=== PATIENT | female | born 1960 | race Caucasian/White ===

== ENCOUNTER 2017-09-26 17:21 | Emergency (ER) | payer BC ==
--- NOTE | 2017-09-26 18:14 | CT ---
CT BRAIN WITHOUT CONTRAST: 09/26/17 HISTORY: Fall. Hematoma. COMPARISON: None. FINDINGS: No acute territory infarct or hemorrhage. No midline shift or mass effect. There is some soft tissue calcification along the zygoma bilaterally. The globes are normal. There is a right supraorbital soft tissue contusion and hematoma with subtle focus of gas suggesting underlyi ng laceration. Calvarium is intact. IMPRESSION: Right supraorbital soft tissue contusion and hematoma without acute posttraumatic intracranial sequel a. POS: [facility]
--- NOTE | 2017-09-26 18:20 | CT ---
CT FACE WITHOUT CONTRAST: 09/26/17 HISTORY: Fall. COMPARISON: None. FINDINGS: Mandible is intact. The nasal bones, medial orbital yuen, lateral orbital yuen, zygoma, and zygomat ic arch, squamous temporal bone are all intact. There are deep fascial calcifications of the maxilla bilaterally. Right supraorbital soft tissue contusion and hematoma with small focus of subcutaneous gas. The pterygoid plates are intact. The anterior nasal spine of the maxilla is intact. No orbital floor fracture. IMPRESSION: No acute fracture of the face. POS: [facility]
--- NOTE | 2017-09-26 18:21 | RAD ---
CHEST ONE VIEW 09/26/17 HISTORY: Fall. COMPARISON: None. FINDINGS: Lungs are clear. No pneumothorax or effusion. The cardiac silhouette and mediastinal contours are wit hin normal limits. IMPRESSION: No acute intrathoracic abnormality. POS: [facility]
--- NOTE | 2017-09-26 18:24 | RAD ---
RIGHT WRIST THREE VIEW: 09/26/17 HISTORY: Fall. COMPARISON: None. FINDINGS: There is mild negative ulnar variance of the distal radioulnar joint degenerative changes. No acute f racture or malalignment. Moderate degenerative disease of the thumb carpometacarpal joint. There is small osseous avulsion seen along the distal ulna which may be a capsular injury. On the lat eral radiograph also appears to be a nondisplaced fracture of the ulnar styloid. IMPRESSION: Likely a triangular fibrocartilage injury of the distal ulna with small avulsion of likely the volar distal radial ulnar ligament as well as the tip of the ulnar styloid. Distal radius is intact. POS: [facility]
--- NOTE | 2017-09-26 18:42 | CT ---
CT CERVICAL SPINE WITHOUT CONTRAST 09/26/17 HISTORY: Fall. Hematoma. COMPARISON: None. FINDINGS: The occipital condyles are intact. The odontoid process is intact. Advanced degenerative disease betw een the odontoid process and the clivus. Advanced degenerative disc space height loss at C4-C6 with u ncinate process hypertrophy as well as osteophyte complexes. No acute fracture or malalignment. Moderate facet arthropathy throughout the cervical spine. The lung apices are clear. Thyroid is unremarkable. IMPRESSION: Advanced degenerative changes. No acute fracture or malalignment. POS: [facility]
[2017-09-26] MEDS ORDERED: Ondansetron ODT 4 MG TAB ONE ×2 (18:48→18:50)
[2017-09-26] MEDS ORDERED: Morphine 4 MG/ML VIAL ONE (18:48)
[2017-09-26] MEDS ORDERED: Adacel (T-DAP) 0.5 ML VIAL ONE (18:48)
[2017-09-26 18:50] LABS: #Basophils 0.1 thou/uL (0.0-0.2); #Eosinphils 0.2 thou/uL (0.0-0.7); #Lymphocytes 2.1 thou/uL (1.20-3.40); #Monocytes 0.5 thou/uL (0.11-0.59); #Neutrophils 4.7 thou/uL (1.40-6.50); %Basophils 0.7 % (0.0-1.0); %Eosinophils 2.5 % (0.0-10.0); %Lymphocytes 27.7 % (21.0-51.0); %Monocytes 6.7 % (0.0-10.0); %Neutrophils 62.4 % (42.0-75.0); Mean Corpuscular HGB CONC 34.2 g/dL (32.0-36.0); Mean Corpuscular Hemoglobin 34.4 pg (27.0-31.0); Mean Platelet Volume 7.2 fL (7.4-10.4); Platelet Count 334 thou/uL (130-400); RBC Distribution Width 12.5 % (11.5-14.5); Red Blood Cell (RBC) Count 3.76 mill/uL (4.20-5.40); White Blood Cell (WBC) Count 7.6 thou/uL (4.8-10.8)
--- NOTE | 2017-09-26 19:24 | RAD ---
LEFT KNEE FOUR VIEW 09/26/17 HISTORY: Fall. COMPARISON: None. FINDINGS: No acute displaced fracture or malalignment. Soft tissue is unremarkable. No joint effusion. IMPRESSION: No abnormality. POS: [facility]
--- NOTE | 2017-09-26 19:25 | RAD ---
RIGHT TIBIA AND FIBULA TWO VIEWS: 09/26/17 HISTORY: Fall. COMPARISON: None. FINDINGS: No fracture. No malalignment. No knee joint effusion. IMPRESSION: No acute abnormality. POS: [facility]
[2017-09-26] MEDS ORDERED: Acetaminophen 500 MG TAB ONE (19:44)
--- NOTE | 2017-09-26 20:07 | RAD ---
LUMBAR SPINE THREE VIEW 09/26/17 HISTORY: Fall. COMPARISON: Lumbar spine radiograph 2016. FINDINGS: Continued anterolisthesis of L4 over L5 just under 1 cm. Posterior spinal fusion hardware is unchange d. No acute fracture or malalignment. Mild narrowing of the L3-4 disc space and L2-3 disc space. Large phleboliths in the pelvis. IMPRESSION: No acute abnormality. POS: [facility]
[2017-09-26 20:10] LABS: ALT (SGPT) 25 U/L (8-55); AST (SGOT) 22 U/L (5-34); Albumin 3.6 g/dL (3.5-5.0); Alkaline Phosphatase 82 U/L (40-150); Anion Gap 10 mmol/L (10-20); BUN (Urea Nitrogen) 19 mg/dL (9.8-20.1); Bilirubin, Total 0.4 mg/dL (0.2-1.2); Calc. Creatinine Clearance 0 mL/min (70-130); Calcium 8.4 mg/dL (7.8-10.44); Carbon Dioxide 24 mmol/L (22-29); Chloride 105 mmol/L (98-107); Estimated GFR-MDRD Greater than 90; Globulin 2.5 g/dL (2.4-3.5); Glucose 92 mg/dL (70-105); Potassium 3.6 mmol/L (3.5-5.1); Protein, Total 6.1 g/dL (6.0-8.3); Sodium 135 mmol/L (136-145)
--- NOTE | 2017-09-26 21:09 | RAD ---
LEFT WRIST THREE VIEW 09/26/17 HISTORY: Fall. COMPARISON: None. FINDINGS: No fracture. No malalignment. Mild capsular calcification of the thumb carpometacarpal joint. Soft tissues are unremarkable. IMPRESSION: No acute abnormality. POS: [facility]
--- NOTE | 2017-09-29 14:46 | EKG ---
Test Reason : Blood Pressure : / mmHG Vent. Rate : 087 BPM Atrial Rate : 087 BPM P-R Int : 162 ms QRS Dur : 098 ms QT Int : 388 ms P-R-T Axes : 017 -24 014 degrees QTc Int : 466 ms Normal sinus rhythm Normal ECG Confirmed by FERNANDEZ BRAN M.D. ([id number]), index editor MARIANA CHAVES ([id number]) on 09/29/2017 2:46:21 PM Referred By: Confirmed By:FERNANDEZ BRAN M.D.
== END 2017-09-26 22:00 | disposition home or self-care (01) ==
LOC: ERS 17:21
DX: S52.614A Nondisplaced fracture of right ulna styloid process, initial encounter for closed fracture (principal); S09.90XA Unspecified injury of head, initial encounter; S80.212A Abrasion, left knee, initial encounter; S05.11XA Contusion of eyeball and orbital tissues, right eye, initial encounter; S99.911A Unspecified injury of right ankle, initial encounter; M54.5 Low back pain; E03.9 Hypothyroidism, unspecified; I10 Essential (primary) hypertension; Z79.899 Other long term (current) drug therapy; Z23 Encounter for immunization; W01.198A Fall on same level from slipping, tripping and stumbling with subsequent striking against other object, initial encounter
CPT/HCPCS: 29125; 36415; 70450; 70486; 71045; 72100; 72125; 80053; 85025; 90471; 90715; 93005; 96361; 96374; J2270; Q0162

== ENCOUNTER 2018-05-28 14:32 | Outpatient (CLI) | payer BC ==
[~2018-05-28 14:32] MED LIST: Gadobenate Dimeglumine 529 MG/1 ML (20ML VIAL) ONE
--- NOTE | 2018-05-28 17:22 | RAD ---
LUMBAR SPINE 4 VIEWS: Date: 05/28/18 HISTORY: Low back pain. FINDINGS: There are five lumbar-type vertebrae. Right pedicle screws and vertical santo are in place at the lumbo sacral junction where is 7.0 mm spondylolisthesis on the weightbearing neutral view. No abnormal jalloh slation motion upon flexion or extension. Metallic markers associated with interbody fusion at the po stoperative level are within the confines of the disc space. Other pedicles are intact. Prominent rightward convex rotatory scoliotic curvature. Disc space narrow ing at the L3-4 level. Prominent osteophytosis throughout the facets. Small, round metallic object ov er the right abdomen is favored to represent bowel content. Phleboliths project over the pelvis. IMPRESSION: Postoperative and degenerative changes of the lumbar spine. No evidence of compression fracture. POS: [facility]
--- NOTE | 2018-05-28 17:23 | MRI ---
CERVICAL SPINE MRI NONCONTRAST: 05/28/18 INDICATION: Cervical spine pain, radiculopathy. FINDINGS: There is a focal kyphosis centered at the C4-5 level. No acute marrow edema. There is degenerative di sc space narrowing at C4-5 and C5-6. Mild retrolisthesis at C4-5 and C5-6 present. Degenerative hypertrophy at the C1-2 level present without high grade central canal stenosis. C2-3: There is no significant compromise of the central canal or neural foramina. C3-4: There is no significant central canal or neural foramina stenosis. C4-5: Broad based disc osteophyte along with retrolisthesis results in moderate central canal stenosi s and ventral cord flattening. There is moderate right and mild left neural foraminal stenosis. C5-6: Broad based disc osteophyte when combined with the mild retrolisthesis results in moderate cent ral canal stenosis and ventral cord effacement. There is moderate biforaminal stenosis. C6-7: There is mild to moderate central canal narrowing with ventral cord effacement due to broad bas ed disc osteophyte. There is mild right neural foraminal narrowing. No high grade left foraminal sten osis. C7-T1: No significant compromise of the central canal or neural foramina. IMPRESSION: Degenerative change of the cervical spine, which is most pronounced at C4-5 and C5-6. This does resul t in cord effacement. Correlate for evidence of myelopathy. POS: [facility]
--- NOTE | 2018-05-28 19:03 | MRI ---
MRI LUMBAR SPINE WITH AND WITHOUT CONTRAST: DATE: 05/28/18 HISTORY: 58-year-old female with M51.36 lumbar disc degeneration. Low back pain. COMPARISON: No prior lumbar spine CTs or MRIs. There are prior plain radiographs of the lumbar spine, including f rom today; and thoracic spine radiograph from 03/23/16. TECHNIQUE: Multiple sequences obtained in axial and sagittal planes, pre and post IV injection of gadolinium-bas ed contrast agent: 50 mL of Multihance. FINDINGS: Review of the plain radiographs demonstrate transitional levels at the thoracolumbar junction and lum bosacral junction. At the thoracolumbar junction, the level with single unilateral left hypoplastic r ib and absence of the right rib, is T12. The level at the lumbosacral junction with alarized bilatera l transverse processes will be considered a partially sacralized L5. T11-12: No additional findings (sagittal images only). T12-L1: There is a dextroscoliosis centered at this level, demonstrated on today's plain radiograph, apparently new or worse compared to 09/26/17. This results in asymmetrically severe left sided degener ative disc disease: left sided disc space narrowing and severe left sided Modic type I bone marrow ch anges. There is diffuse disc bulge. There is a superimposed focal central midline disc herniation wit h slight superior and slight inferior migration of the extruded disc material, indenting the ventral aspect of the thecal sac. Overall degree of central spinal canal stenosis is mild. There are mild deborah ateral degenerative facet changes. No high grade right sided neural foraminal stenosis. There is mode rate left neural foraminal stenosis. L1-2: Conus medullaris terminates at this level. Disc space maintained. Mild diffuse disc bulge. Mild to moderate bilateral degenerative facet hypertrophy. No central stenosis. Moderate bilateral neural foraminal stenosis. L2-3: Moderate ligamentum flavum thickening. Moderate to severe bilateral degenerative facet changes. Moderate bilateral neural foraminal stenosis, left worse than right. Moderate disc space narrowing. Prominent diffuse disc bulge. Moderate central spinal canal stenosis. Posterior epidural fat pad. Mod erate to severe thecal sac stenosis. L3-4: Bilateral somewhat severe degenerative facet changes. Moderate bilateral neural foraminal steno sis. Moderate to severe disc space narrowing. End plate irregularities and mixed Modic type I and typ e II changes. Prominent diffuse disc bulge. Moderate to severe central spinal canal stenosis. Livestock Caretaker ior epidural fat pad. Severe thecal sac stenosis with effacement of CSF. L4-5: Unilateral right L4 and L5 pedicle screws. Grade I anterolisthesis of L4 on L5. Severe end plat e irregularity including prominent end plate defects. Modic type II marrow changes. Diffuse disc bulg e. Severe right neural foraminal stenosis. Moderate left neural foraminal stenosis. Moderate central spinal canal stenosis. High grade lateral recess stenosis bilaterally. Bilateral degenerative facet c hanges, partially obscured by the right sided metallic hardware. L5-S1: Normal disc signal. Disc height maintained. Minimal disc bulge. Right neural foramen partially obscured by magnetic susceptibility artifact from right L5 pedicle screw. No left sided neural tirso inal stenosis. No central stenosis. Hypoplastic bilateral facet joints. Pseudoarticulation of bilater al assimilation joints. No abnormal, unexpected enhancement is visualized. The hardware on the right side in the lower lumbar spine makes it impossible to evaluate for abnormal enhancement about that location. IMPRESSION: 1. Transitional level at the thoracolumbar junction and lumbosacral junction, including partiall y sacralized L5. 2. Unilateral right pedicle screws at L4-5 placed in order to stabilize grade I spondylolisthesi s at that level. 3. Severe degenerative disc disease at L4-5, and moderate to severe degenerative disc disease at L3-4 and T12-L1. 4. The asymmetrically severe left sided degenerative disc disease at T12-L1 is due to an apparen tly new dextroscoliosis centered at that location. 5. Multilevel facet osteoarthrosis, including high grade. 6. Severe thecal sac stenosis at L3-4. 7. High grade right neural foraminal stenosis at L4-5. EMANI Gunter POS: [facility]
== END 2018-05-28 14:33 | disposition home or self-care (01) ==
LOC: BICMRI 14:32
PROVIDERS: ATTEND Neurological Surgery
DX: M51.36 Other intervertebral disc degeneration, lumbar region (principal); M47.816 Spondylosis without myelopathy or radiculopathy, lumbar region; M51.35 Other intervertebral disc degeneration, thoracolumbar region; M48.061 Spinal stenosis, lumbar region without neurogenic claudication; M47.22 Other spondylosis with radiculopathy, cervical region; Z98.890 Other specified postprocedural states
CPT/HCPCS: 72110; 72141; 72158; A9579

== ENCOUNTER 2018-07-12 13:01 | Outpatient (CLI) | payer BC ==
--- NOTE | 2018-07-12 15:25 | ULT ---
BILATERAL HIP SOFT TISSUE ULTRASOUND: COMPARISON: None. HISTORY: Bilateral hip pain. TECHNIQUE: Multiplanar, kauffman scale, and color Doppler images were obtained in a targeted ultrasound of the bilat eral hips. FINDINGS: In the left hip region, there is a shadowing echogenic region measuring 2.7 cm in greatest dimension. This may represent a large calcification in the soft tissues. In the right hip region, there is a fluid collection along the patient's incision measuring 6.7 x 2.7 x 1.9 cm in size. IMPRESSION: 1. The abnormality along the left hip likely represents a calcification in the soft tissues. 2. Small fluid collection in the right hip region. POS: [facility]
== END 2018-07-12 13:02 | disposition home or self-care (01) ==
LOC: BICULT 13:01
PROVIDERS: ATTEND Specialist
DX: R22.41 Localized swelling, mass and lump, right lower limb (principal); R22.42 Localized swelling, mass and lump, left lower limb; R93.7 Abnormal findings on diagnostic imaging of other parts of musculoskeletal system
CPT/HCPCS: 76999

== ENCOUNTER 2018-08-27 09:53 | Outpatient (CLI) | payer BC ==
--- NOTE | 2018-08-27 10:30 | MMO ---
Bilateral MAMMO Bilat Screen [facility]. CLINICAL HISTORY: Patient is 58 years old and is seen for screening. The patient has the following family history of breast cancer: aunt, at age 80. The patient has no personal history of cancer. VIEWS: The views performed were: bilateral craniocaudal with tomosynthesis and bilateral mediolateral oblique with tomosynthesis. FILMS COMPARED: The present examination has been compared to prior imaging studies performed at [facility] on 05/01/2003, 05/17/2004, 05/19/2005, 01/02/2007, 03/13/2008, 03/18/2009, 08/16/2010, 08/22/2011, 06/11/2014 and 10/19/2016, and at [facility] [place] on 05/28/2001. MAMMOGRAM FINDINGS: There are scattered fibroglandular densities. There are stable benign appearing calcifications seen in both breasts. There are no suspicious masses, suspicious calcifications, or new areas of architectural distortion. IMPRESSION: THERE IS NO MAMMOGRAPHIC EVIDENCE OF MALIGNANCY. A ROUTINE FOLLOW-UP MAMMOGRAM IN 1 YEAR IS RECOMMENDED. THE RESULTS OF THIS EXAM WERE SENT TO THE PATIENT. ACR BI-RADS Category 2 - Benign finding MAMMOGRAPHY NOTE: 1. A negative mammogram report should not delay a biopsy if a dominant of clinically suspicious mass is present. 2. Approximately 10% to 15% of breast cancers are not detected by mammography. 3. Adenosis and dense breasts may obscure an underlying neoplasm.
--- NOTE | 2018-08-27 11:13 | BD ---
DEXA BONE DENSITY EXAM: HISTORY: A 58-year-old postmenopausal female for screening. COMPARISON: None. FINDINGS: BMD (g/cm2) T-SCORE LEFT FEMORAL NECK 0.864 -0.1 TOTAL PROXIMAL LEFT FEMUR: 1.073 1.1 RIGHT FEMORAL NECK 0.838 -0.1 TOTAL PROXIMAL RIGHT FEMUR 0.963 0.2 IMPRESSION: Normal bone mineral density. POS: [facility]
== END 2018-08-27 09:54 | disposition home or self-care (01) ==
LOC: BICMAMMO 09:53
PROVIDERS: ATTEND Family Medicine
DX: Z12.31 Encounter for screening mammogram for malignant neoplasm of breast (principal); M81.0 Age-related osteoporosis without current pathological fracture; Z80.3 Family history of malignant neoplasm of breast
CPT/HCPCS: 77063; 77067; 77080

== ENCOUNTER 2018-09-06 12:41 | Outpatient (CLI) | payer BC ==
--- NOTE | 2018-09-07 10:21 | CT ---
CT Lumbar Spine WO Con HISTORY:Severe low back pain. History of surgery in 2016. Patient fell one year ago and has had pain ever since. COMPARISON: 05/28/2018 MRI study FINDINGS: The vertebral bodies maintain normal height. There is severe disc narrowing at the T12-L1 L 3-4 and L4-5 levels. A grade 1 spondylolisthesis of L5 4 on L5 is present. Right unilateral pedicle screws are also present at this level. There is also a unilateral right-sided pars defect at the L4-5 level. L1-2: Degenerative facet changes without significant canal or foraminal stenosis. L2-3: Disc bulging facet and ligamentous hypertrophic changes are associated with a moderately severe degree of canal stenosis. L3-4: Moderately severe canal stenosis also present at this level with degenerative facet and ligamen tous hypertrophic change and disc bulge. L4-5: Right unilateral pedicle screws are present at this level is a moderately severe degree of lani l stenosis caused by disc bulging spondylolisthesis and facet changes. Mild bilateral foraminal narrowing. L5-S1 degenerative facet changes are present at this level. There is marked right-sided foraminal dung rowing. IMPRESSION: 1. Moderately severe canal stenosis at L3-4 and L4-5. 2. Right unilateral pars defect at L4-5 with right-sided pedicle screws. 3. Moderate right-sided foraminal narrowing at L5-S1. Other findings as noted above.
== END 2018-09-06 12:42 | disposition home or self-care (01) ==
LOC: BICCT 12:41
PROVIDERS: ATTEND Specialist
DX: M43.16 Spondylolisthesis, lumbar region (principal); M48.061 Spinal stenosis, lumbar region without neurogenic claudication; M48.07 Spinal stenosis, lumbosacral region; Z98.890 Other specified postprocedural states
CPT/HCPCS: 72131

== ENCOUNTER 2019-05-23 14:37 | Outpatient (CLI) | payer BC ==
--- NOTE | 2019-05-23 16:26 | MRI ---
MRI Upper Ext Jt Rt WO Con History: Severe tenosynovitis. Joint contracture. Comparison: Wrist radiograph 2018 Findings: Abnormal tenosynovitis of the middle finger extensor tendon at the level of the metacarpoph alangeal joint extending along the proximal phalanx. Mild flexor tendon thickening middle finger between the A1 and A2 pulleys. There is a tear of the medial sagittal band with lateral subluxation. Abnormal synovitis of the middle finger metacarpophalangeal joint. There is also a tear of the ulnar collateral ligament of the middle finger metacarpophalangeal joint. Mild volar subluxation of the proximal phalanx of the middle finger. Moderate degenerative disease of the thumb carpometacarpal joint. Impression: 1. Rupture of the medial sagittal band metacarpophalangeal joint with subluxation of the extensor ten don. 2. High-grade synovitis and volar subluxation of the middle finger metacarpophalangeal joint. 3. High-grade partial tear ulnar collateral ligament middle finger metacarpophalangeal joint which ap pears to scarred distally at the proximal phalanx base. 4. Mild flexor tendon thickening middle finger between the A1 and A2 pulleys can be seen with jesus swan. Transcribed Date/Time: 05/23/2019 7:12 PM
--- NOTE | 2019-05-23 16:36 | MRI ---
MRI Upper Ext Jt Lt WO Con History: Joint contracture. Comparison: None. Findings: Abnormal extensor tendon thickening middle finger metacarpophalangeal joint between the A1 and A2 pulleys. There is also abnormal medial subluxation of the middle finger extensor tendon at the level of the metacarpophalangeal joint with lateral sagittal band rupture. Mild tenosynovitis of the ring finger flexor tendons at the level of the metacarpophalangeal joint. No fracture. Moderate degenerative disease of the thumb carpometacarpal joint. Impression: 1. Findings of flexor stenosing tenosynovitis of the middle finger at the level of the metacarpophala ngeal joint between the A1 and A2 pulleys can be a source of trigger finger. 2. Lateral sagittal band rupture middle finger metacarpophalangeal joint with medial subluxation of t he extensor tendon unit. 3. Low-grade tenosynovitis of the flexor tendons ring finger the level of the metacarpophalangeal becky nt. 4. High-grade degenerative disease of the thumb carpometacarpal joint. Transcribed Date/Time: 05/23/2019 7:09 PM
== END 2019-05-23 14:38 | disposition home or self-care (01) ==
LOC: TBSIIMAG 14:37
PROVIDERS: ATTEND Orthopaedic Surgery Hand Surgery
DX: M65.841 Other synovitis and tenosynovitis, right hand (principal); M65.842 Other synovitis and tenosynovitis, left hand; M79.642 Pain in left hand; M79.641 Pain in right hand; M24.50 Contracture, unspecified joint; M18.10 Unilateral primary osteoarthritis of first carpometacarpal joint, unspecified hand

== ENCOUNTER 2019-07-21 14:28 | Outpatient (CLI) | payer BC ==
--- NOTE | 2019-07-21 15:14 | RAD ---
XR Ankle Lt 3 View STANDARD HISTORY: Psoriasis, fibromyalgia, right ankle pain FINDINGS: No fracture or dislocation is identified. The ankle mortise is maintained. Posterior and plantar calc aneal spurs are present.
--- NOTE | 2019-07-21 16:01 | RAD ---
EXAM: LEFT FOOT THREE VIEWS: History: PSA, psoriasis, fibromyalgia. FINDINGS: Calcaneal plantar and Achilles enthesophytes. There is a suggestion of some soft tissue swelling at t he level of the fifth toe, nonspecific. No fracture, dislocation, or other significant acute osseous process. IMPRESSION: No evidence for acute fracture or dislocation. Enthesophytic changes. Possible soft tissue swelling a t the fifth toe metatarsal phalangeal joint level. POS: [facility]
--- NOTE | 2019-07-21 16:02 | RAD ---
RIGHT FOOT 3 VIEWS: HISTORY: Psoriasis. Fibromyalgia. PSA. FINDINGS: Calcaneal, plantar, and Achilles enthesophytes. Minimal degenerative and osteoarthrosis change. No evidence for significant acute inflammatory arthritis. IMPRESSION: Degenerative and osteoarthrosis change. POS: [facility]
--- NOTE | 2019-07-21 16:17 | RAD ---
RADIOGRAPH RIGHT ANKLE THREE VIEWS: Date: 07-21-2019 History: 59-year-old female with right ankle pain. Psoriasis and fibromyalgia. FINDINGS: Ankle mortise is congruent. Tiny marginal osteophytes at tibial plafond. Tiny enthesophytes at medial and lateral malleoli. Talar dome is maintained. No high grade joint space narrowing. No fracture or destructive osseous lesion. Comparison: Mild osteoarthrosis of the right ankle. POS: [facility]
--- NOTE | 2019-07-21 16:19 | RAD ---
EXAM: LEFT HAND THREE VIEWS: History: PSA. Psoriasis. Fibromyalgia. FINDINGS: Mild degenerative changes and osteoarthrosis changes of the hand and wrist. No acute fracture or disl ocation. IMPRESSION: Degenerative and osteoarthrosis changes of the hand and wrist. No evidence for significant acute infl ammatory arthritis. POS: [facility]
--- NOTE | 2019-07-21 16:23 | RAD ---
EXAM: RIGHT HAND THREE VIEWS: History: PSA, psoriasis, fibromyalgia. FINDINGS: Minimal degenerative and osteoarthrosis change. Evidence for a negative ulnar variance. No significan t acute process. IMPRESSION: Degenerative and osteoarthrosis change. Evidence for negative ulnar variance with some arthrosis of t he distal radial and ulnar joint. No evidence for acute inflammatory arthritis. POS: [facility]
--- NOTE | 2019-07-21 16:26 | RAD ---
EXAM: BILATERAL KNEES TWO VIEWS UPRIGHT STANDING: History: PSA, psoriasis, fibromyalgia. FINDINGS: No evidence for acute fracture or dislocation. No bony or periarticular erosive changes. Small hvac project manager ior ossific density which is posteriorly and medially located, possibly within a popliteal cyst or a synovial cyst. IMPRESSION: No acute fracture or dislocation. 0.4 x 0.6 cm diameter circumscribed calcific focus noted medially a nd posteriorly on the right side, possibly within a popliteal cyst or a synovial cyst. Depending upon concern, follow up MRI imaging might give additional information in that regard. POS: [facility]
== END 2019-07-21 14:29 | disposition home or self-care (01) ==
LOC: BICRAD 14:28
PROVIDERS: ATTEND Internal Medicine Rheumatology
DX: L40.50 Arthropathic psoriasis, unspecified (principal); M79.7 Fibromyalgia; Z13.820 Encounter for screening for osteoporosis; M19.041 Primary osteoarthritis, right hand; M19.042 Primary osteoarthritis, left hand; M19.032 Primary osteoarthritis, left wrist; M19.071 Primary osteoarthritis, right ankle and foot
CPT/HCPCS: 73565

== ENCOUNTER 2019-10-10 10:02 | Outpatient (CLI) | payer BC ==
--- NOTE | 2019-10-10 12:59 | RAD ---
FOUR VIEWS OF THE LUMBAR SPINE 10/10/19 HISTORY: Bilateral leg pain and back pain. FINDINGS: There is prominent rotodextroscoliosis of the lumbar spine centered at the L3 level. This leads to mu ltilevel significant left sided disc space narrowing and left lateral osteophyte formation within the lumbar spine. Postoperative hardware is present at the L4-5 level with right sided pedicle screws and vertically or iented interlocking. There is an intervertebral disc device at L4-5 as well. Neutral lateral imaging demonstrates anterolisthesis of 9-10 mm at L4-5. This anterolisthesis measure s approximately 10-11 mm on extension and approximately 10 mm on flexion. No acute fracture. IMPRESSION: Degenerative and postoperative change of the lumbar spine as detailed above. POS: [facility]
--- NOTE | 2019-10-10 14:02 | MRI ---
CERVICAL SPINE MRI WITHOUT CONTRAST: 10/10/19 HISTORY: Right arm and shoulder pain with neck pain, fall one year ago. TECHNIQUE: Multiplanar and multisequence MR imaging of the cervical spine is obtained without contrast. FINDINGS: The sagittal STIR imaging is limited by motion artifact. No discrete focal area of osseous marrow romina ma is appreciated. The axial imaging is markedly limited by motion artifact, limiting detailed assessment for central ca nal and neural foraminal stenosis. There is straightening of the normal cervical lordosis. There is no significant anterolisthesis of re trolisthesis seen within the cervical spine. Minimal anterolisthesis at the C6-7 level is noted measu ring in the 2-3 mm range. There is moderate degenerative changes at the atlantoaxial interspace. C2-3: Facet and uncovertebral osteophyte formation noted bilaterally with mild bilateral neural tirso inal stenosis. No significant central canal stenosis. C3-4: There is disc desiccation with minimal disc bulge and mild central canal stenosis. Bilateral fa cet and uncovertebral osteophyte formation noted with at least moderate bilateral neural foraminal st enosis, left greater than right. C4-5: Disc space narrowing with disc desiccation noted. There is anterior osteophyte formation and th ere is a disc osteophyte complex effacing the ventral thecal sac and abutting the ventral aspect of t he cord with a moderate/severe degree of central canal stenosis Bilateral facet and uncovertebral ost eophyte formation with moderate/severe bilateral neural foraminal stenosis, left greater than right. C5-6: Disc space narrowing with disc desiccation, anterior osteophyte formation and disc bulge efface s ventral thecal sac and causes moderate/severe central canal stenosis. Facet and uncovertebral osteo phyte formation leads to moderate/severe bilateral neural foraminal stenosis, right greater than left . C6-7: Disc desiccation and disc space narrowing. Bilateral facet hypertrophy. Mild/moderate bilateral neural foraminal stenosis and mild central canal stenosis. C7-T1: Bilateral facet hypertrophy with mild bilateral neural foraminal stenosis. No significant chastity tral canal stenosis. No focal area of abnormal signal intensity identified within the cervical cord. IMPRESSION: Severe cervical spine degenerative change, most prominent at C4-5 and C5-6. Of note, prominent motion artifact limits detailed assessment for cervical spine central canal and neural foraminal stenosis. POS: [facility]
--- NOTE | 2019-10-10 14:14 | MRI ---
MRI OF THE THORACIC SPINE WITHOUT CONTRAST: 10/10/19 HISTORY: Back pain. TECHNIQUE: Multiplanar and multisequence MR imaging of the thoracic spine obtained without contrast. FINDINGS: The sagittal STIR imaging demonstrates edematous degenerative end plate change at T12-L1. There is no significant anterolisthesis or retrolisthesis noted within the thoracic spine. There is no significant central canal stenosis within the thoracic spine from the T1-2 level through the T11-12 level. There is multilevel mid thoracic spine disc space narrowing and disc desiccation. There is no focal area of abnormal signal intensity identified within the thoracic cord. From the T1-2 level through the T11-12 level, there is no significant neural foraminal stenosis on ei ther side. Detailed assessment for central canal and/or neural foraminal stenosis within the thoracic spine is l imited on the basis of motion artifact. At the T12-L1 level, there is disc space narrowing with degenerative end plate change and disc desicc ation as well as anterior osteophyte formation. There is a large disc extrusion at T12-L1 in the cent ral/right paracentral region. There is superior migration of extruded disc material posterior to the central and right aspect of the T12 vertebral body. Large disc extrusion measures in the 1.4 cm in tr ansverse dimension and measures approximately 1.8 cm in craniocaudal dimension. This causes severe ce ntral canal stenosis centrally and to the right of midline with mass effect on the distal aspect of t he thoracic cord. IMPRESSION: Large central/right paracentral disc extrusion at T12-L1 with superior migration and resultant severe central canal stenosis with mass effect on the distal thoracic cord/conus medullaris. POS: SHAMIKA
== END 2019-10-10 10:03 | disposition home or self-care (01) ==
LOC: TBSIIMAG 10:02
PROVIDERS: ATTEND Neurological Surgery
DX: M51.36 Other intervertebral disc degeneration, lumbar region (principal); M50.30 Other cervical disc degeneration, unspecified cervical region; M47.816 Spondylosis without myelopathy or radiculopathy, lumbar region; M51.25 Other intervertebral disc displacement, thoracolumbar region; M48.04 Spinal stenosis, thoracic region; M47.812 Spondylosis without myelopathy or radiculopathy, cervical region; M48.02 Spinal stenosis, cervical region; Z98.890 Other specified postprocedural states
CPT/HCPCS: 72110; 72141; 72146

== ENCOUNTER 2019-11-07 08:36 | Outpatient (CLI) | payer BC, OTHER ==
[2019-11-07 16:40] LABS: #Basophils 0.1 thou/uL (0.0-0.2); #Eosinphils 0.1 thou/uL (0.0-0.7); #Lymphocytes 2.3 thou/uL (1.20-3.40); #Monocytes 0.5 thou/uL (0.11-0.59); #Neutrophils 2.7 thou/uL (1.40-6.50); %Basophils 1.5 % (0.0-1.0); %Eosinophils 2.6 % (0.0-10.0); %Lymphocytes 40.3 % (21.0-51.0); %Monocytes 8.5 % (0.0-10.0); %Neutrophils 47.2 % (42.0-75.0); Hemoglobin 12.7 g/dL (12.0-16.0); Mean Corpuscular HGB CONC 33.1 g/dL (32.0-36.0); Mean Corpuscular Hemoglobin 33.6 pg (27.0-31.0); Mean Platelet Volume 7.7 fL (7.4-10.4); Platelet Count 366 thou/uL (130-400); RBC Distribution Width 13.2 % (11.5-14.5); Red Blood Cell (RBC) Count 3.78 mill/uL (4.20-5.40); White Blood Cell (WBC) Count 5.7 thou/uL (4.8-10.8)
[2019-11-07 16:47] LABS: Anion Gap 10 mmol/L (10-20); BUN (Urea Nitrogen) 21 mg/dL (9.8-20.1); Calc. Creatinine Clearance 0 mL/min (70-130); Calcium 9.3 mg/dL (7.8-10.44); Carbon Dioxide 31 mmol/L (22-29); Chloride 102 mmol/L (98-107); Estimated GFR-MDRD 78; Glucose 94 mg/dL (70-105); Potassium 4.1 mmol/L (3.5-5.1); Sodium 139 mmol/L (136-145)
[2019-11-07 17:20] LABS: Bacteria/HPF 3+ HPF (None Seen); Bilirubin Negative (Negative); Blood, Urine Negative (Negative); Calcium Oxalate Crystals 2+ HPF (None Seen); Clarity Turbid (Clear); Glucose, Urine (Dipstick) Normal (Negative); Leukocyte Negative Leu/uL (Negative); Nitrite Negative (Negative); Protein, Urine (Dipstick) 20 mg/dL (Neg-Trace); RBC/HPF 0-3 HPF (0-3)
[2019-11-08 13:07] LABS: SARS-CoV-2 MS2 Positive; SARS-CoV-2 N Gene Negative; SARS-CoV-2 S Gene Negative; SARS-CoV-2 orf1ab Negative
== END 2019-11-07 08:37 | disposition home or self-care (01) ==
LOC: LABBT 08:36
PROVIDERS: ATTEND Orthopaedic Surgery Hand Surgery
DX: Z01.812 Encounter for preprocedural laboratory examination (principal); Z11.59 Encounter for screening for other viral diseases; S63.414A Traumatic rupture of collateral ligament of right ring finger at metacarpophalangeal and interphalangeal joint, initial encounter; M65.331 Trigger finger, right middle finger; M65.341 Trigger finger, right ring finger
CPT/HCPCS: 80048; 81001; 85025; 87635; U0003

== ENCOUNTER 2019-11-11 07:10 | Day surgery (SDC) | payer BC ==
[2019-11-06 10:49] VITALS: BMI 24.7
[2019-11-11] MEDS ORDERED: Fentanyl 100 MCG/2 ML VIAL ONE ×2 (09:09→09:52)
[2019-11-11] MEDS ORDERED: Midazolam HCl 2 mg/2 ml Vial ONE (09:09)
[2019-11-11] MEDS ORDERED: Bupivacaine PF 0.5% 30 ML VIAL ONE (09:56)
[2019-11-11] MEDS ORDERED: Betamet Acet/Betamet Na Ph 30 MG/5 ML VIAL ONE (09:56)
[2019-11-11] MEDS ORDERED: Bacitracin Zinc Ointment 30 gm TUBE ONE (09:57)
[2019-11-11] MEDS ORDERED: Sodium Chloride 0.9% 10 ML ONE (09:57)
[2019-11-11] MEDS ORDERED: Ketorolac Tromethamine 30 MG/ML VIAL ONE ×2 (13:35→15:25)
--- NOTE | 2019-11-11 15:01 | RAD ---
EXAM: 2 views of the right long finger DATE: 11/11/2019 12:00 AM INDICATION: Right finger pinning COMPARISON: None. FINDIN fluoroscopic spot images of the right long finger demonstrates a suture anchor involving the base of the long finger proximal phalanx. Joint alignment appears within normal limits IMPRESSION:Intraoperative C-arm radiographs of the right long finger.
[2019-11-11] MEDS ORDERED: Dexamethasone 20 MG/5 ML VIAL ONE (15:25)
[2019-11-11] MEDS ORDERED: PROPOFOL 200 MG/20 ML VIAL ONE (15:25)
[2019-11-11] MEDS ORDERED: Rocuronium Bromide 10 MG/ML (10ML VIAL) ONE (15:25)
[2019-11-11] MEDS ORDERED: Bupivacaine HCl 0.5%/Epinephrine 1:200,000/PF 30 ml Vial ONE (15:25)
[2019-11-11] MEDS ORDERED: Ondansetron PF 4 MG/2 ML Vial ONE (15:25)
[2019-11-11] MEDS ORDERED: Lidocaine 1% PF 5 ML VIAL ONE (15:25)
--- NOTE | 2019-11-12 13:19 | OP ---
DATE OF PROCEDURE: 11/11/2019 PREOPERATIVE DIAGNOSES: 1. Ring finger and middle finger A1 yan tenosynovitis. 2. Synovitis of metacarpophalangeal joint and middle finger. 3. Ring finger prior FDS avulsion. 4. Middle finger ulnar extensor subluxation with greater than 50% P1 base of ulnar collateral ligament tear. POSTOPERATIVE DIAGNOSES: 1. Ring finger and middle finger A1 yan tenosynovitis. 2. Synovitis of metacarpophalangeal joint and middle finger. 3. Ring finger prior FDS avulsion. 4. Middle finger ulnar extensor subluxation with greater than 50% P1 base of ulnar collateral ligament tear. PROCEDURES PERFORMED: 1. Right ring finger A1 yan release. 2. Right middle finger A1 yan release. 3. Right middle finger centralization of extensor tendon. 4. Right middle finger ulnar collateral ligament reconstruction with synovectomy of metacarpophalangeal joint. 5. Right middle finger C-arm supervision. 6. Right lateral epicondyle injection with 2 mL Celestone. ESTIMATED BLOOD LOSS: 20 mL. TOURNIQUET TIME: 71 minutes. DETAILED DESCRIPTION OF FINDINGS: Ulnar collateral ligament P1 base 50% tear with degenerative scar to FDS avulsion with retraction of the ring finger at the A1 yan level and clear FDP intact and for subluxation, extensor MP joint mechanism with 1 cm retinaculum tear on the radial side. DESCRIPTION OF PROCEDURE: After successful general endotracheal anesthesia, the limb was prepped and draped. We outlined incisions dorsally for the MP joint approach based on pathology listed above and palmarly 2 separate incisions for the A1 pulleys. We exsanguinated the limb, inflated tourniquet to 250 mmHg pressure, and then made the injection with a total of 20 mL of 0.5% Marcaine 5 at each of the A1 yan sites and 10 at the MP joint for that procedure collection. First, we approached the small finger with a 15 mm zigzag incision, carried through skin and subcutaneous tissue until we reached the A1 yan level. A1 yan was very tight and there was a band of scar tissue, which once elevated clearly showed flexor digitorum superficialis had partial rupture and was retracted. We then released the A1 yan, inspected the FDP tendon, and found to have no synovitis. We made a similar incision on the radial side of the middle finger A1 yan, released this, and then from there, we did so under direct visualization with both FDP and FDS intact with synovitis. We performed a small synovectomy. We closed both these incision with interrupted 4-0 nylon. We then proceeded to turn hand over to the palm side down, and made a zigzag incision carried over the skin and subcutaneous tissue. The dorsal of the middle finger metacarpophalangeal joint sparing the prominence from an incisional related suture. We carried this through skin and subcutaneous tissue and immediately saw an approximately 1 cm long radial tear in the retinaculum and confirmed the subluxation ulnarly. We released the ulnar retinaculum for approximately 50% completely, and then dissected down until we found the ulnar collateral ligament. The entire dorsal 50% was torn and had degenerative scar, retracted approximately 2 mm. We then released approximately 3/4 of the ligament, developed a trough beginning 2 mm from the chondral reflection and from here, it was approximately 4 mm long x 2 mm deep x 2 mm wide trough. We then placed a heavy anchor, Mitek mini, and then with abduction of the digit ulnarly, we were able to tie this with the joint at 30 degrees of flexion. After this, the joint did no longer translated with stress. We then closed 50% of the retinaculum, went on the radial side and released the retinaculum completely at the extensor cheek and used multiple fold 4-0 Prolene sutures to create [id number] tightening of the retinaculum on the radial side. After this, the tendon was very centralized. We then released the tourniquet and obtained hemostasis. We closed the incision in the epidermal and dermal closure as one with interrupted 4-0 nylon in an interrupted mattress pattern. A C-arm had been used to confirm the anchor position. We then placed a dressing here, bacitracin, Adaptic, 4x4s, Kerlix, and before splinting, we went to the lateral epicondyle, identified, and using a 22-gauge needle, injected 2 mL of Celestone into the epicondyle and submuscular tissue. The patient then left the operating room without evidence of anesthetic or operative complication. Job ID: [id number]
== END 2019-11-11 14:38 | disposition home or self-care (01) ==
LOC: SDC 07:10
PROVIDERS: ATTEND Orthopaedic Surgery Hand Surgery
PROC: 3E0U33Z Introduction of Anti-inflammatory into Joints, Percutaneous Approach (ICD-10-PCS; principal; 2019-11-11)
PROC: 0RBW0ZZ Excision of Right Finger Phalangeal Joint, Open Approach (ICD-10-PCS; principal; 2019-11-11)
PROC: 0LN70ZZ Release Right Hand Tendon, Open Approach (ICD-10-PCS; principal; 2019-11-11)
PROC: 0MQ70ZZ Repair Right Hand Bursa and Ligament, Open Approach (ICD-10-PCS; principal; 2019-11-11)
PROC: 3E0T3BZ Introduction of Anesthetic Agent into Peripheral Nerves and Plexi, Percutaneous Approach (ICD-10-PCS; principal; 2019-11-11)
DX: S63.632A Sprain of interphalangeal joint of right middle finger, initial encounter (principal); M65.331 Trigger finger, right middle finger; M65.332 Trigger finger, left middle finger; M65.341 Trigger finger, right ring finger; M65.342 Trigger finger, left ring finger; S63.652A Sprain of metacarpophalangeal joint of right middle finger, initial encounter; S46.811A Strain of other muscles, fascia and tendons at shoulder and upper arm level, right arm, initial encounter; G89.18 Other acute postprocedural pain; M79.7 Fibromyalgia; L40.50 Arthropathic psoriasis, unspecified; I10 Essential (primary) hypertension; E07.9 Disorder of thyroid, unspecified; Z79.899 Other long term (current) drug therapy; X58.XXXA Exposure to other specified factors, initial encounter
CPT/HCPCS: 76000; 88305; C1713; J0670; J0690; J0702; J1100; J1885; J2250; J2405; J2704; J3010; J3490; S0020

== ENCOUNTER 2020-01-02 07:25 | Outpatient (CLI) | payer BC, OTHER ==
[2020-01-02 14:13] LABS: #Basophils 0.1 thou/uL (0.0-0.2); #Eosinphils 0.1 thou/uL (0.0-0.7); #Lymphocytes 2.9 thou/uL (1.20-3.40); #Monocytes 0.6 thou/uL (0.11-0.59); #Neutrophils 3.6 thou/uL (1.40-6.50); %Eosinophils 1.1 % (0.0-10.0); %Monocytes 8.2 % (0.0-10.0); %Neutrophils 49.7 % (42.0-75.0); Hemoglobin 13.5 g/dL (12.0-16.0); Mean Corpuscular HGB CONC 32.7 g/dL (32.0-36.0); Mean Corpuscular Hemoglobin 33.6 pg (27.0-31.0); Mean Platelet Volume 6.8 fL (7.4-10.4); Platelet Count 423 thou/uL (130-400); RBC Distribution Width 13.1 % (11.5-14.5); Red Blood Cell (RBC) Count 4.02 mill/uL (4.20-5.40); White Blood Cell (WBC) Count 7.2 thou/uL (4.8-10.8)
[2020-01-03 14:01] LABS: SARS-CoV-2 MS2 Positive; SARS-CoV-2 N Gene Negative; SARS-CoV-2 S Gene Negative; SARS-CoV-2 by NAA Not Detected (NotDetected); SARS-CoV-2 orf1ab Negative
== END 2020-01-02 07:26 | disposition home or self-care (01) ==
LOC: LABBT 07:25
PROVIDERS: ATTEND Orthopaedic Surgery Hand Surgery
DX: Z01.812 Encounter for preprocedural laboratory examination (principal); Z20.828 Contact with and (suspected) exposure to other viral communicable diseases; M66.242 Spontaneous rupture of extensor tendons, left hand
CPT/HCPCS: 85025; 87635; U0003

== ENCOUNTER 2020-06-18 12:29 | Outpatient (CLI) | payer BC ==
--- NOTE | 2020-06-18 14:01 | MRI ---
MRI of thethoracic spine: 06/18/2020 COMPARISON:07/12/2019 HISTORY:Fall 2 years ago, difficulty walking with severe back pain TECHNIQUE: Multiplanar multisequence MR imaging of thethoracic spine without contrast Findings:The incompletely imaged cervical spine demonstrates significant disc space narrowing with de generative endplate change and disc bulge at the C4-5 and C5-6 levels with incompletely assessed central canal stenosis. The sagittal STIR imaging demonstrates no focal area of osseous marrow edema aside from prominent romina matous degenerative endplate changes at the T12-L1 level laterally on the right, not significantly changed when compared to the prior examination. T1-2: No significant central canal or neural foraminal stenosis. Mild right neural foraminal stenosis on the basis of facet hypertrophy. T2-3: No significant central canal or neural foraminal stenosis. T3-4: No significant central canal or neural foraminal stenosis. T4-5: No significant central canal or neural foraminal stenosis. T5-6: No significant central canal or neural foraminal stenosis. T6-7: No significant central canal or neural foraminal stenosis. T7-8: No significant central canal or neural foraminal stenosis. T8-9: No significant central canal or neural foraminal stenosis. T9-10: There is disc space narrowing and disc desiccation with bilateral facet hypertrophy. No centra l canal stenosis. There is bilateral neural foraminal stenosis, moderate on the right and mild on the left. T10-11: Bilateral facet hypertrophy noted. No significant central canal or neural foraminal stenosis. T11-12: Mild bilateral facet hypertrophy with no significant central canal or neural foraminal stenos is. T12-L1: There is a lobulated bilobed large central/right paracentral disc extrusion measuring 1.7 cm in craniocaudal dimension, 1 cm in AP dimension, and 1.6 cm in transverse dimension leading to severe central canal stenosis with mass effect on the adjacent cord/conus medullaris. This appears si milar when compared to the prior exam. No focal area of abnormal signal intensity identified within the thoracic cord. IMPRESSION:Stable thoracic spine MRI as detailed above. Findings include a large central/right parace ntral disc extrusion with superior migration at the T12-L1 level with associated severe central canal stenosis.
--- NOTE | 2020-06-18 14:14 | MRI ---
MRI Lumbar Spine Noncontrast: HISTORY: Lumbar radiculopathy. Severe back pain and difficulty walking. History of prior lumbar surgery. COMPARISON: 10/08/2019 FINDINGS: The visualized retroperitoneal structures demonstrate a normal appearance. Conus medullaris is normal in morphology and terminates at the L1 level. Paravertebral soft tissues have a normal appearance. Again noted is metallic susceptibility artifact on the right at the L4-5 level likely due to unilater al left-sided pedicular screws and posterior rods transfixing this level. T12-L1: Again noted is loss of intervertebral disc height. Fluid signal intensity is present in the i ntervertebral discs which is likely attributable to degenerative changes. There are prominent endplate degenerative changes again present at this level. Endplates are preserved. There is evidence of a central and right paracentral disc extrusion with disc material measuring 23 mm craniocaudal x9 mm AP. Findings could potentially represent a central disc protrusion with small right paracentral sequestered disc fragment. The disc material does appear to contact the exiting right T12 nerve root. There is effacement of the ventral aspect of thecal sac with slight flattening of the anterior aspect of the distal most spinal cord. Right neural foramen is patent, but there is severe left-sided neural foraminal narrowing related to generalized broad-based disc bulge and facet degener ative change. Findings are similar to prior exam L1-2: Mild disc deep complex and facet hypertrophic changes are present. No significant central canal narrowing is present. Minimal right-sided neural foraminal narrowing is present. There is mild to moderate left-sided neural foraminal narrowing. L2-3: Loss of intervertebral disc height. Fluid signal intensity is seen in the intervertebral discs likely related to degenerative change. Disc osteophyte complex is present with moderate facet hypertrophic changes and ligamentous thickening. Findings again result in moderate to severe central canal narrowing with moderate right and severe left-sided neural foraminal narrowing. Findings are similar to prior exam. L3-4: Loss of intervertebral disc height with minimal fluid signal intensity in the intervertebral di scs related to degenerative change. Broad-based disc osteophyte complex is present with facet hypertrophic changes. Findings again result in severe central canal narrowing with moderate to severe right and moderate left-sided neural foraminal narrowing. L4-5: Posterior fusion is present at this level. There are prominent endplate degenerative changes wi th fluid signal intensity in the intervertebral disc related to the prominent degenerative changes. There is minimal grade 1 anterolisthesis of L4 on L5 stable compared to prior exam. There is disc ost eophyte complex again seen at this level which results in mild central canal narrowing. Right neural foramen is obscured due to metallic susceptibility artifact. Moderate left-sided neural forami nal narrowing is again seen. L5-S1: Facet hypertrophic changes are present this level. No significant disc bulge or disc herniatio n is present. Spinal canal and left neural foramen are patent. There is mild right-sided neural foraminal narrowing. IMPRESSION: 1. Large disc extrusion at the T12-L1 level with disc material extending superiorly and posteriorly t o the upper margin of the T12 vertebral body similar to prior exam which results in effacement of the right anterolateral aspect of the distal spinal cord. This also abuts and likely affects the T12 nerve root origin. Again please note that transitional vertebra at the lumbosacral junction has again been designated as L5 level. 2. Severe left-sided neural foraminal narrowing at T12-L1 level and severe left-sided neural foramina l narrowing at L2-3 level related to degenerative changes. Moderate to severe central canal narrowing is present at L2-3 level with severe central canal narrowing at the L3-4 level. Degenerativ e changes and postoperative changes involving the lumbar spine are not significantly changed from prior exam
== END 2020-06-18 12:30 | disposition home or self-care (01) ==
LOC: TBSIIMAG 12:29
PROVIDERS: ATTEND Orthopaedic Surgery Orthopaedic Surgery of the Spine
DX: M96.1 Postlaminectomy syndrome, not elsewhere classified (principal); M62.89 Other specified disorders of muscle; M48.062 Spinal stenosis, lumbar region with neurogenic claudication; M51.16 Intervertebral disc disorders with radiculopathy, lumbar region; M51.25 Other intervertebral disc displacement, thoracolumbar region; M47.26 Other spondylosis with radiculopathy, lumbar region; M48.05 Spinal stenosis, thoracolumbar region
CPT/HCPCS: 72146; 72148

== ENCOUNTER 2020-07-16 13:21 | Outpatient (CLI) | payer BC | END 2020-07-16 13:22 | disposition home or self-care (01) | LOC: CT 13:21 | PROVIDERS: ATTEND Orthopaedic Surgery Orthopaedic Surgery of the Spine | DX: M51.36 Other intervertebral disc degeneration, lumbar region (principal); M48.062 Spinal stenosis, lumbar region with neurogenic claudication; M47.816 Spondylosis without myelopathy or radiculopathy, lumbar region; M43.16 Spondylolisthesis, lumbar region; M51.25 Other intervertebral disc displacement, thoracolumbar region; M47.814 Spondylosis without myelopathy or radiculopathy, thoracic region; M48.04 Spinal stenosis, thoracic region | CPT/HCPCS: 72128; 72131 ==

== ENCOUNTER 2020-10-25 13:56 | Outpatient (CLI) | payer BC | END 2020-10-25 13:57 | disposition home or self-care (01) | LOC: BICRAD 13:56 | PROVIDERS: ATTEND Family Medicine | DX: S09.93XA Unspecified injury of face, initial encounter (principal) | CPT/HCPCS: 70150 ==

== ENCOUNTER 2020-11-16 11:11 | Outpatient (CLI) | payer BC | END 2020-11-16 11:12 | disposition home or self-care (01) | LOC: BICMAMMO 11:11 | PROVIDERS: ATTEND Family Medicine | DX: Z12.31 Encounter for screening mammogram for malignant neoplasm of breast (principal); Z80.3 Family history of malignant neoplasm of breast | CPT/HCPCS: 77063; 77067 ==

== ENCOUNTER 2021-09-28 13:07 | Outpatient (CLI) | payer BC | END 2021-09-28 13:08 | disposition home or self-care (01) | LOC: BICRAD 13:07 | PROVIDERS: ATTEND Family Medicine | DX: R07.82 Intercostal pain (principal) ==

== ENCOUNTER 2021-11-18 10:45 | Outpatient (CLI) | payer BC | END 2021-11-18 10:46 | disposition home or self-care (01) | LOC: BICRAD 10:45 | PROVIDERS: ATTEND Family Medicine | DX: R07.82 Intercostal pain (principal) ==

== ENCOUNTER 2022-01-11 15:40 | Outpatient (CLI) | payer BC | END 2022-01-11 15:41 | disposition home or self-care (01) | LOC: BICRAD 15:40 | PROVIDERS: ATTEND Internal Medicine Cardiovascular Disease | DX: Z01.810 Encounter for preprocedural cardiovascular examination (principal) | CPT/HCPCS: 71046 ==

== ENCOUNTER 2022-02-09 12:59 | Outpatient (CLI) | payer BC | END 2022-02-09 13:00 | disposition home or self-care (01) | LOC: BICRAD 12:59 | PROVIDERS: ATTEND Family Medicine | DX: J20.9 Acute bronchitis, unspecified (principal) | CPT/HCPCS: 71046 ==

== ENCOUNTER 2022-05-03 14:58 | Outpatient (CLI) | payer BC | END 2022-05-03 14:59 | disposition home or self-care (01) | LOC: RAD 14:58 | PROVIDERS: ATTEND Family Medicine | DX: M19.90 Unspecified osteoarthritis, unspecified site (principal); M76.892 Other specified enthesopathies of left lower limb, excluding foot; M67.854 Other specified disorders of tendon, left hip; Z98.890 Other specified postprocedural states ==

== ENCOUNTER 2022-07-25 09:55 | Outpatient (CLI) | payer BC | END 2022-07-25 09:56 | disposition home or self-care (01) | LOC: BICMAMMO 09:55 | PROVIDERS: ATTEND Internal Medicine Rheumatology | DX: Z13.820 Encounter for screening for osteoporosis (principal) | CPT/HCPCS: 77080 ==

== ENCOUNTER 2023-02-20 12:54 | Outpatient (CLI) | payer BC | END 2023-02-20 12:55 | disposition home or self-care (01) | LOC: CT 12:54 | PROVIDERS: ATTEND Physician Assistant Surgical | DX: M51.26 Other intervertebral disc displacement, lumbar region (principal); M47.812 Spondylosis without myelopathy or radiculopathy, cervical region; M48.02 Spinal stenosis, cervical region; M43.8X9 Other specified deforming dorsopathies, site unspecified; M51.34 Other intervertebral disc degeneration, thoracic region; M43.26 Fusion of spine, lumbar region; M41.50 Other secondary scoliosis, site unspecified; M47.814 Spondylosis without myelopathy or radiculopathy, thoracic region; G89.29 Other chronic pain; Z98.1 Arthrodesis status | CPT/HCPCS: 72128; 72131; 72146 ==

== ENCOUNTER 2024-03-05 11:54 | Outpatient (CLI) | payer BC | END 2024-03-05 11:55 | disposition home or self-care (01) | LOC: BICMAMMO 11:54 | PROVIDERS: ATTEND Family Medicine | DX: Z12.31 Encounter for screening mammogram for malignant neoplasm of breast (principal); N63.20 Unspecified lump in the left breast, unspecified quadrant; N64.89 Other specified disorders of breast | CPT/HCPCS: 77063; 77067 ==

== ENCOUNTER 2024-03-12 13:48 | Outpatient (CLI) | payer BC | END 2024-03-12 13:49 | disposition home or self-care (01) | LOC: BICMAMMO 13:48 | PROVIDERS: ATTEND Family Medicine | DX: N63.20 Unspecified lump in the left breast, unspecified quadrant (principal); N64.89 Other specified disorders of breast | CPT/HCPCS: G0279 ==